=== PATIENT | male | born 1965 | race Hispanic/Latino ===

== ENCOUNTER 2025-03-10 03:40 | Emergency (ER) | payer BC ==
[~2025-03-10] VITALS: Ht 185.4 cm; Wt 139.3 kg
[~2025-03-10 03:40] MED LIST: AMLODIPINE BESYL5 MG PO; LOSARTAN POTASS25 MG; METOPROLOL TART25 MG PO
[2025-03-10] MEDS: KETOROLAC TROMETHAMINE 30 MG/ML VIAL IV STA (04:47)
[2025-03-10] MEDS ORDERED: OMEPRAZOLE40 MG PO (05:57)
[2025-03-10 05:59] VITALS: PULSE 80; RESP 16; TEMP 98.8
[2025-03-10] MEDS: FAMOTIDINE 20 MG/2 ML VIAL IV STA (06:02)
[2025-03-10 06:06] VITALS: BP 139/85; PULSE 80; RESP 16; TEMP 98.8; O2SAT 97
== END 2025-03-10 06:09 | disposition home or self-care (01) ==
LOC: FSED 03:53
DX: K29.70 Gastritis, unspecified, without bleeding (principal); I10 Essential (primary) hypertension; E78.5 Hyperlipidemia, unspecified; Z86.73 Personal history of transient ischemic attack (TIA), and cerebral infarction without residual deficits
CPT/HCPCS: 74176; 80048; 80076; 81003; 85025; 99284; J1308; J1885